=== PATIENT | female | born 1995 ===

== ENCOUNTER 2018-08-12 10:16 | Inpatient (IN) | payer OTHER ==
[2018-08-12] MEDS ORDERED: Alum-Mag Hydrox-Simethicone Susp (30 mL) PO STA (10:46)
[2018-08-12 11:23] LABS: BASO % 0.2 % (0.0-2.0); EOS # 0.4 K/uL (0.0-0.7); EOS % 2.7 % (0.0-4.0); HEMOGLOBIN 13.2 g/dL (12.0-16.0); LYMPH # 1.8 K/uL (1.0-4.3); LYMPH % 13.3 % (20.0-40.0); MEAN CELL VOLUME 81.2 fl (81.0-99.0); MEAN CORPUSCULAR HGB CONC 34.5 g/dL (33.0-37.0); MEAN PLATELET VOLUME 8.2 fl (7.2-11.7); MONO # 0.8 K/uL (0.0-0.8); MONO % 5.7 % (0.0-10.0); NEUT # 10.4 K/uL (1.8-7.0); NEUT % 78.1 % (50.0-75.0); RBC 4.71 Mil/uL (3.80-5.20); RED CELL DISTRIBUTION WIDTH 13.7 % (11.5-14.5); WHITE BLOOD COUNT 13.4 K/uL (4.8-10.8)
[2018-08-12] MEDS ORDERED: Morphine 4 MG/ML VIAL ONE (11:33)
--- NOTE | 2018-08-12 12:49 | ED PDOC ---
HPI: Abdomen Time Seen by Provider: 08/12/18 10:36 Chief Complaint (Nursing): Abdominal Pain Chief Complaint (Provider): Epigastric abdominal pain History Per: Patient History/Exam Limitations: no limitations Onset/Duration Of Symptoms: Days Outside of [place] travel?: No Location Of Pain/Discomfort: Epigastric Quality Of Discomfort: Sharp, Burning Associated Symptoms: Nausea. denies: Fever, Chills, Vomiting, Loss Of Appetite, Constipation, Urinary Symptoms Additional Complaint(s): 23 yo female presents for evaluation of epigastric pain since this morning. Pt denies fever/chills. Pt reports mild nausea. Denies similar in the past. Pt states that she took ibuprofen for pain but it did not help. Pt reports normal BM. PT seen in clinic and states test was negative there. Past Medical History Reviewed: Historical Data, Nursing Documentation, Vital Signs Vital Signs: Last Vital Signs Temp 97 F L 08/12/18 10:25 Pulse 55 L 08/12/18 10:25 Resp 20 08/12/18 10:25 BP 110/45 L 08/12/18 11:44 Pulse Ox 98 08/12/18 10:25 - Medical History PMH: No Chronic Diseases - Surgical History Surgical History: No Surg Hx - Family History Family History: States: No Known Family Hx - Living Arrangements Living Arrangements: With Family - Social History Current smoker - smoking cessation education provided: No - Immunization History Hx Tetanus Toxoid Vaccination: No Hx Influenza Vaccination: No Hx Pneumococcal Vaccination: No - Home Medications Home Medications: Ambulatory Orders Medication Instructions Recorded No Known Home Med 08/12/18 - Allergies Allergies/Adverse Reactions: Allergies Allergy/AdvReac Type Severity Reaction Status Date / Time No Known Allergies Allergy Verified 08/12/18 10:25 Review of Systems ROS Statement: Except As Marked, All Systems Reviewed And Found Negative Constitutional: Negative for: Fever, Chills, Sweats Cardiovascular: Negative for: Chest Pain, Palpitations Gastrointestinal: Positive for: Nausea, Abdominal Pain. Negative for: Vomiting, Diarrhea Physical Exam - Reviewed Nursing Documentation Reviewed: Yes Vital Signs Reviewed: Yes - Physical Exam Appears: Positive for: Well, Non-toxic, No Acute Distress Head Exam: Positive for: ATRAUMATIC, NORMAL INSPECTION, NORMOCEPHALIC Skin: Positive for: Normal Color, Warm, DRY Eye Exam: Positive for: Normal appearance ENT: Positive for: Normal ENT Inspection Neck: Positive for: Normal, Painless ROM Cardiovascular/Chest: Positive for: Regular Rate, Rhythm Respiratory: Positive for: Normal Breath Sounds. Negative for: Accessory Muscle Use, Respiratory Distress Gastrointestinal/Abdominal: Positive for: Normal Exam, Soft, Tenderness (Epigastric ). Negative for: Guarding, Rebound Back: Positive for: Normal Inspection Extremity: Positive for: Normal ROM Neurologic/Psych: Positive for: Alert, Oriented - Laboratory Results Result Diagrams: 08/12/18 11:05 08/12/18 15:15 - ECG O2 Sat by Pulse Oximetry: 98 Medical Decision Making Medical Decision Making: Pt reports feeling better on re-evaluation. Beta Hcg 14 - US cancelled. Elevated WBC. GB US - Dilated CBD. Discussed with residential mortgage manager, seen by Dr. Rosas at bedside and seen by Dr. Lao at bedside. Dr. aLo recommends MRCP. MRCP shows Acute cholecystitis with stone in CBD. Discussed with Dr. Rosas. Pt with beta Hcg of 14. Discussed with Dr. Monge. States this is a chemical at this time and there is no WEB DEVELOPMENT INSTRUCTOR intervention at this time. Staes he can consult patient when GI/Surgery decided was is medically necessary for the patient and conservative management in preferred. Disposition - Clinical Impression Clinical Impression: Acute cholecystitis, Cholelithiasis, - Patient ED Disposition Is Patient to be Admitted: Yes - Disposition Disposition Time: 20:02 Condition: STABLE Forms: [facility] (Khmer) - Pt Status Changed To: Hospital Disposition Of: Inpatient - Admit Certification Admit to Inpatient:: After my assessment, the patient will require hos pitalization for at least two midnights. This is because of the severity of symptoms shown, intensity of services needed, and/or the medical risk in this patient being treated as an outpatient. - POA Present On Arrival: None
--- NOTE | 2018-08-12 13:44 | US ---
Date of service: 08/12/2018 HISTORY: epigastric pain COMPARISON: None. TECHNIQUE: Sonographic evaluation of the right upper quadrant of the abdomen. FINDINGS: LIVER: Measures 13.2 cm in length. Normal echogenicity of the liver parenchyma. No mass. No intrahepatic bile duct dilatation. GALLBLADDER: Cholelithiasis without gallbladder wall thickening/edema or pericholecystic fluid. Small gallstone at the gallbladder neck/cystic duct junction. Sonographic Rios's sign was not elicited. COMMON BILE DUCT: Measures 9 mm. No stones. Dilated. PANCREAS: Unremarkable as visualized. No mass. No ductal dilatation. RIGHT KIDNEY: Measures 10.5 x 5.0 x 5.5 cm in length. Normal echogenicity. No calculus, mass, or hydronephrosis. AORTA: No aneurysmal dilatation. IVC: Unremarkable. OTHER FINDINGS: None . IMPRESSION: Cholelithiasis without sonographic evidence of acute cholecystitis. Small gallstone at the gallbladder neck/cystic duct junction. Dilated CBD measuring up to 9 mm for which distal choledocholithiasis cannot be excluded. MRCP/ERCP can be obtained for further evaluation as clinically warranted.
[2018-08-12 15:36] LABS: ALBUMIN 3.9 g/dL (3.5-5.0); ALT/SGPT 125 U/L (9-52); AST/SGOT 233 U/L (14-36); BLOOD UREA NITROGEN 8 mg/dl (7-17); CALCIUM 9.2 mg/dL (8.4-10.2); GFR NON-AFRICAN AMERICAN > 60; LIPASE 35 U/L (23-300)
--- NOTE | 2018-08-12 15:36 | CP.PCM.CON ---
<Piotr Zendejas - Last Filed: 08/12/18 19:16> History of Present Illness - History of Present Illness History of Present Illness: General Surgery Consult Note for Dr. Rosas Reason for consult: abdominal pain, choelithiasis, dilated CBD 23 F with no significant PMH presents to [facility] for complaint of abdominal pain. Patient was seen and evaluated in the ED. Family was present at bedside. Patient states that her pain began this morning. She reports to never having experienced this pain in the past. She also states that she had associated nausea/vomiting with NBNB emesis. Patient became worried and went to the clinic to get checked out. During the visit, a test was done and found to be negative. Patient came to ED because she was not feeling any better after visit. test was done in ED and found to be positive and quantiative B-HCG was ordered. ABUS was done which revealed cholelithiasis and dilated CBD. Patient rates pain as severe. She describes it as constant and sharp in the epigastrium. Eating/drinkning aggravates symptoms. Admits to chills. Denies fevers, chest pain, SOB, palpitations, diarrhea, constipation, urinary symptoms. PMH: Denies Meds: Denies ALL: NKDA PSH: Denies FH: non-contributory Social: Denies tobacco/EtOH/illicit drug use Review of Systems - Review of Systems All systems: reviewed and no additional remarkable complaints except (as per HPI) Past Patient History - Past Social History Smoking Status: Never Smoked - PSYCHIATRIC Hx Substance Use: No - ANESTHESIA Hx Anesthesia: Yes Hx Anesthesia Reactions: No Hx Malignant Hyperthermia: No Meds Allergies/Adverse Reactions: Allergies Allergy/AdvReac Type Severity Reaction Status Date / Time No Known Allergies Allergy Verified 08/12/18 10:25 - Medications Medications: Current Medications Lactated Ringer's (Lactated Ringer's) 1,000 mls @ 105 mls/hr IV .Q9H32M REBECCA Ampicillin Sodium/Sulbactam (Sodium 3 gm/ Sodium Chloride) 100 mls @ 100 mls/hr IVPB Q6 REBECCA; Protocol Physical Exam - Constitutional Appears: Non-toxic, No Acute Distress - Head Exam Head Exam: NORMOCEPHALIC - Eye Exam Eye Exam: EOMI, Normal appearance Pupil Exam: PERRL - ENT Exam ENT Exam: Mucous Membranes Moist - Respiratory Exam Respiratory Exam: NORMAL BREATHING PATTERN - Cardiovascular Exam Cardiovascular Exam: REGULAR RHYTHM - GI/Abdominal Exam GI & Abdominal Exam: Distended, Normal Bowel Sounds, Soft, Tenderness (epigas tric). absent: Firm, Guarding, Rebound, Rigid - Extremities Exam Extremities exam: Positive for: normal capillary refill, pedal pulses present. Negative for: calf tenderness - Back Exam Back exam: absent: CVA tenderness (L), CVA tenderness (R) - Neurological Exam Neurological exam: Alert, CN II-XII Intact, Oriented x3 - Psychiatric Exam Psychiatric exam: Normal Affect, Normal Mood - Skin Skin Exam: Dry, Intact, Normal Color, Warm Results - Vital Signs Recent Vital Signs: Last Vital Signs Temp 97 F L 08/12/18 10:25 Pulse 55 L 08/12/18 10:25 Resp 20 08/12/18 10:25 BP 110/45 L 08/12/18 11:44 Pulse Ox 98 08/12/18 12:53 - Labs Result Diagrams: 08/12/18 11:05 08/12/18 15:15 Labs: Laboratory Results - last 24 hr 08/12/18 08/12/18 08/12/18 11:05 11:05 12:30 WBC 13.4 H RBC 4.71 Hgb 13.2 Hct 38.2 MCV 81.2 MCH 28.0 MCHC 34.5 RDW 13.7 Plt Count 171 MPV 8.2 Neut % (Auto) 78.1 H Lymph % (Auto) 13.3 L [place] % (Auto) 5.7 Eos % (Auto) 2.7 Baso % (Auto) 0.2 Neut # (Auto) 10.4 H Lymph # (Auto) 1.8 [place] # (Auto) 0.8 Eos # (Auto) 0.4 Baso # (Auto) 0.0 Beta HCG, Quant 14.48 Blood Type A POSITIVE Blood Type Confirm Antibody Screen Negative BBK History Checked No verified bt 08/12/18 14:00 WBC RBC Hgb Hct MCV MCH MCHC RDW Plt Count MPV Neut % (Auto) Lymph % (Auto) [place] % (Auto) Eos % (Auto) Baso % (Auto) Neut # (Auto) Lymph # (Auto) [place] # (Auto) Eos # (Auto) Baso # (Auto) Beta HCG, Quant Blood Type Blood Type Confirm A POSITIVE Antibody Screen BBK History Checked Assessment & Plan - Assessment and Plan (Free Text) Assessment: 23 F with cholelithiasis and dilated CBD found to have positive test Plan: -NPO -IV fluids -IV abx -Analgesics/Anti-emetics PRN -GI consult, help appreciated -DETECTOR CAR OPERATOR consult, help appreciated -Further recommendations as per Dr. Ralph Zendejas PGY2 - Date & Time Date: 08/12/18 <Kaiden Rosas - Last Filed: 08/13/18 00:16> Meds - Medications Medications: Current Medications Lactated Ringer's (Lactated Ringer's) 1,000 mls @ 105 mls/hr IV .Q9H32M [facility] Last Admin: 08/12/18 17:50 Dose: 105 mls/hr Ampicillin Sodium/Sulbactam (Sodium 3 gm/ Sodium Chloride) 100 mls @ 100 mls/hr IVPB Q6 REBECCA; Protocol Last Admin: 08/12/18 22:26 Dose: 100 mls/hr Morphine Sulfate (Morphine) 2 mg IVP Q4 PRN PRN Reason: Pain, moderate (4-7) Results - Vital Signs Recent Vital Signs: Last Vital Signs Temp 97.8 F 08/12/18 23:52 Pulse 59 L 08/12/18 23:52 Resp 19 08/12/18 23:52 BP 113/70 08/12/18 23:52 Pulse Ox 98 08/12/18 23:52 - Labs Result Diagrams: 08/12/18 11:05 08/12/18 15:15 Labs: Laboratory Results - last 24 hr 08/12/18 08/12/18 08/12/18 11:05 11:05 12:30 WBC 13.4 H RBC 4.71 Hgb 13.2 Hct 38.2 MCV 81.2 MCH 28.0 MCHC 34.5 RDW 13.7 Plt Count 171 MPV 8.2 Neut % (Auto) 78.1 H Lymph % (Auto) 13.3 L [place] % (Auto) 5.7 Eos % (Auto) 2.7 Baso % (Auto) 0.2 Neut # (Auto) 10.4 H Lymph # (Auto) 1.8 [place] # (Auto) 0.8 Eos # (Auto) 0.4 Baso # (Auto) 0.0 Sodium Cancelled Potassium Cancelled Chloride Cancelled Carbon Dioxide Cancelled Anion Gap Cancelled BUN Cancelled Creatinine Est GFR ( Amer) Cancelled Est GFR (Non-Af Amer) Cancelled Random Glucose Cancelled Calcium Cancelled Total Bilirubin Cancelled AST Cancelled ALT Cancelled Alkaline Phosphatase Cancelled Total Protein Cancelled Albumin Cancelled Globulin Cancelled Albumin/Globulin Ratio Cancelled Lipase Cancelled Beta HCG, Quant 14.48 Blood Type A POSITIVE Blood Type Confirm Antibody Screen Negative BBK History Checked No verified bt 08/12/18 08/12/18 14:00 15:15 WBC RBC Hgb Hct MCV MCH MCHC RDW Plt Count MPV Neut % (Auto) Lymph % (Auto) [place] % (Auto) Eos % (Auto) Baso % (Auto) Neut # (Auto) Lymph # (Auto) [place] # (Auto) Eos # (Auto) Baso # (Auto) Sodium 139 Potassium 4.1 Chloride 103 Carbon Dioxide 31 H Anion Gap 9 L BUN 8 Creatinine 0.4 L Est GFR ( Amer) > 60 Est GFR (Non-Af Amer) > 60 Random Glucose 107 H Calcium 9.2 Total Bilirubin 1.4 H AST 233 H ALT 125 H Alkaline Phosphatase 135 H Total Protein 8.0 Albumin 3.9 Globulin 4.0 H Albumin/Globulin Ratio 1.0 Lipase 35 Beta HCG, Quant Blood Type Blood Type Confirm A POSITIVE Antibody Screen BBK History Checked Assessment & Plan - Assessment and Plan (Free Text) Plan: I personally saw and examined the patient with the resident staff and agree with the above assessment and plan. I personally reviewed the available diagnostic images and imaging reports. 23 female acute calculus cholecystitis and choledocholithiasis confirmed on MRCP. HD stable. Abd soft, mild upper abd tenderness. Elevated LFT's and Tbili 1.4. NPO. IVF. Abx. GI consult for ERCP, sphincterotomy and stone extraction. OB consult and patient counseling re: status of positive Upreg, confirmation of , viability, risks associated with appropriate treatment of her cholecystitis and CBD obstruction including ERCP and subsequent lap cholecystectomy.
--- NOTE | 2018-08-12 17:22 | MRI ---
Date of service: 08/12/2018 PROCEDURE: Magnetic Resonance Cholangiopancreatography HISTORY: Dilated CBD COMPARISON: None available. TECHNIQUE: Multiplanar, multisequence MR images of the abdomen were obtained, including heavily T2 weighted MRCP images of the biliary system. Rotating maximum intensity projection images of the biliary system were generated. FINDINGS: MRCP: Dilated CBD secondary to 7 x 3 mm calculus within the mid common duct. Small calculi within the cystic duct. No intrahepatic biliary ductal dilatation. LIVER: Unremarkable. GALLBLADDER: Distended gallbladder with cholelithiasis and wall thickening/edema as well as a small amount of pericholecystic fluid. SPLEEN: Unremarkable. PANCREAS: Unremarkable. ADRENALS: Unremarkable. KIDNEYS: Unremarkable. AORTA: No aneurysm. ASCITES: None. OTHER FINDINGS: None. IMPRESSION: Findings suggestive of acute cholecystitis with gallbladder distention, pericholecystic fluid and multiple small gallstones within the gallbladder neck and cystic duct. Choledocholithiasis with a 7 x 3 mm calculus in the mid common duct. Findings conveyed to JAVI Leal by Dr. Garcia at 5:20 p.m. on 08/12/2018.
[2018-08-12] MEDS: Lactated Ringer's 1,000 ML IV SCH (17:50)
[2018-08-13] MEDS: Lactated Ringer's 1,000 ML IV SCH ×5 (00:32→20:00)
[2018-08-13] MEDS ORDERED: Influenza Vaccine (5 YR UP)/PF 60 MCG/0.5 ML SYR IM ONE (06:00)
[2018-08-13 06:53] LABS: INR 1.2; PROTHROMBIN TIME 13.7 Seconds (9.8-13.1)
[2018-08-13 06:55] LABS: PARTIAL THROMBOPLASTIN TIME 36.4 Seconds (25.6-37.1)
--- NOTE | 2018-08-13 07:15 | CP.PCM.CON ---
History of Present Illness - History of Present Illness History of Present Illness: NOTE DATED FOR 08/12/18 DUE TO MEDITECH DIFFICULTIES; SEE DAILY PROGRESS NOTE FOR UPDATED ASSESSMENT AND PLAN PGY-4 GI Fellow Consult Note Pt is a 23 yo Hisp Female w/o medical history presenting with abdominal pain. She states in the AM of 08/12 she had abrupt onset, sharp, non-radiating epigastric pain associated with N/V. Emesis consisted of PO intake, denying any bloody or bilious emesis. Cannot identify and precipitating or alleviating factors. She denied any fever, chill, CP, nor SOB. Of note, UPT was reportedly positive in ED and BCG 14. 12 point ROS negative other than stated above MHx: None SurgHx: None Meds: None FamHx: Sister with gastritis SocHx: Rare EtOH, denied tob/drugs All: NKDA Past Patient History - Past Medical History & Family History Past Medical History?: No - Past Social History Smoking Status: Never Smoked - MUSCULOSKELETAL/RHEUMATOLOGICAL Hx Falls: No - PSYCHIATRIC Hx Substance Use: No - ANESTHESIA Hx Anesthesia: Yes Hx Anesthesia Reactions: No Hx Malignant Hyperthermia: No Meds Allergies/Adverse Reactions: Allergies Allergy/AdvReac Type Severity Reaction Status Date / Time No Known Allergies Allergy Verified 08/12/18 10:25 - Medications Medications: Current Medications Lactated Ringer's (Lactated Ringer's) 1,000 mls @ 105 mls/hr IV .Q9H32M [facility] Last Admin: 08/13/18 06:12 Dose: 105 mls/hr Ampicillin Sodium/Sulbactam (Sodium 3 gm/ Sodium Chloride) 100 mls @ 100 mls/hr IVPB Q6 REBECCA; Protocol Last Admin: 08/13/18 03:41 Dose: 100 mls/hr Morphine Sulfate (Morphine) 2 mg IVP Q4 PRN PRN Reason: Pain, moderate (4-7) Physical Exam - Constitutional Appears: Well, Non-toxic, No Acute Distress - Head Exam Head Exam: ATRAUMATIC, NORMAL INSPECTION - Eye Exam Eye Exam: EOMI. absent: Conjunctival injection, Scleral icterus - ENT Exam ENT Exam: Mucous Membranes Moist. absent: Mucous Membranes Dry, Normal External Ear Exam - Respiratory Exam Respiratory Exam: Clear to Auscultation Bilateral, NORMAL BREATHING PATTERN - Cardiovascular Exam Cardiovascular Exam: REGULAR RHYTHM, RRR - GI/Abdominal Exam GI & Abdominal Exam: Normal Bowel Sounds, Soft, Tenderness (mild in epigastric w/o guarding). absent: Bruit, Diminished Bowel Sounds, Distended, Firm, Guarding, Hernia, Mass, Organomegaly, Pulsatile Mass, Rebound, Rigid - Rectal Exam Rectal Exam: Deferred - Extremities Exam Extremities exam: Positive for: normal inspection. Negative for: pedal edema - Neurological Exam Neurological exam: Alert, CN II-XII Intact - Psychiatric Exam Psychiatric exam: Normal Affect, Normal Mood - Skin Skin Exam: Normal Color, Warm Results - Vital Signs Recent Vital Signs: Last Vital Signs Temp 97.8 F 08/12/18 23:52 Pulse 59 L 08/12/18 23:52 Resp 19 08/12/18 23:52 BP 113/70 08/12/18 23:52 Pulse Ox 98 08/12/18 23:52 - Labs Result Diagrams: 08/12/18 11:05 08/12/18 15:15 Labs: Laboratory Results - last 24 hr 08/12/18 08/12/18 08/12/18 11:05 11:05 12:30 WBC 13.4 H RBC 4.71 Hgb 13.2 Hct 38.2 MCV 81.2 MCH 28.0 MCHC 34.5 RDW 13.7 Plt Count 171 MPV 8.2 Neut % (Auto) 78.1 H Lymph % (Auto) 13.3 L [place] % (Auto) 5.7 Eos % (Auto) 2.7 Baso % (Auto) 0.2 Neut # (Auto) 10.4 H Lymph # (Auto) 1.8 [place] # (Auto) 0.8 Eos # (Auto) 0.4 Baso # (Auto) 0.0 PT INR APTT Sodium Cancelled Potassium Cancelled Chloride Cancelled Carbon Dioxide Cancelled Anion Gap Cancelled BUN Cancelled Creatinine Est GFR ( Amer) Cancelled Est GFR (Non-Af Amer) Cancelled Random Glucose Cancelled Calcium Cancelled Total Bilirubin Cancelled AST Cancelled ALT Cancelled Alkaline Phosphatase Cancelled Total Protein Cancelled Albumin Cancelled Globulin Cancelled Albumin/Globulin Ratio Cancelled Lipase Cancelled Beta HCG, Quant 14.48 Blood Type A POSITIVE Blood Type Confirm Antibody Screen Negative BBK History Checked No verified bt 08/12/18 08/12/18 08/13/18 14:00 15:15 05:55 WBC RBC Hgb Hct MCV MCH MCHC RDW Plt Count MPV Neut % (Auto) Lymph % (Auto) [place] % (Auto) Eos % (Auto) Baso % (Auto) Neut # (Auto) Lymph # (Auto) [place] # (Auto) Eos # (Auto) Baso # (Auto) PT 13.7 H INR 1.2 APTT 36.4 Sodium 139 Potassium 4.1 Chloride 103 Carbon Dioxide 31 H Anion Gap 9 L BUN 8 Creatinine 0.4 L Est GFR ( Amer) > 60 Est GFR (Non-Af Amer) > 60 Random Glucose 107 H Calcium 9.2 Total Bilirubin 1.4 H AST 233 H ALT 125 H Alkaline Phosphatase 135 H Total Protein 8.0 Albumin 3.9 Globulin 4.0 H Albumin/Globulin Ratio 1.0 Lipase 35 Beta HCG, Quant Blood Type Blood Type Confirm A POSITIVE Antibody Screen BBK History Checked Assessment & Plan - Assessment and Plan (Free Text) Assessment: 23 yo Hisp Female possible recently diagnosed presenting with abd pain. # Abd Pain: Due to Choledocholithiasis. Dilated CBD to 9 mm on US with MRCP finding 3x7mm mid CBD stone. Though WBC mildly elevated, could be stress response. Reassuringly, no fever and abd pain much improved. Complicated sit uation given suspected pregancy. Risk to fetus at this point outweigh benefits as no signs of cholangitis and abd pain much improved at this time. Therefore, plan would be to monitor closely with supportive care for passing of stone. Plan: - Monitor for sign of cholangitis (Fever, CBC, CMP) - IVF - Should pt develop cholangitis, will need detailed risk/benefit discussion given suspected due to risk of radiation exposure to fetus - OB consult - Supportive care Thank you for the consult. Will cont to follow. Please call/page if questions. Pt seen and examined with Dr. Lao. See attestation for further recs/changes.
[2018-08-13 08:35] LABS: HEMOGLOBIN 12.1 g/dL (12.0-16.0); MEAN CELL VOLUME 80.5 fl (81.0-99.0); MEAN CORPUSCULAR HEMOGLOBIN 28.3 pg (27.0-31.0); MEAN CORPUSCULAR HGB CONC 35.1 g/dL (33.0-37.0); RBC 4.28 Mil/uL (3.80-5.20); RED CELL DISTRIBUTION WIDTH 13.9 % (11.5-14.5); WHITE BLOOD COUNT 8.7 K/uL (4.8-10.8)
[2018-08-13 09:03] LABS: ALB/GLOB RATIO 0.9 (1.0-2.1); ALBUMIN 3.3 g/dL (3.5-5.0); ALT/SGPT 98 U/L (9-52); AST/SGOT 109 U/L (14-36); BLOOD UREA NITROGEN 8 mg/dl (7-17); CALCIUM 8.4 mg/dL (8.4-10.2); GFR NON-AFRICAN AMERICAN > 60
--- NOTE | 2018-08-13 09:21 | CP.PCM.PN ---
Subjective - Date & Time of Evaluation Date of Evaluation: 08/13/18 Time of Evaluation: 08:30 - Subjective Subjective: PGY-4 GI Fellow Prog Note Pt lying in bed, using phone when seen this AM. States no abd pain overnight and asking to eat. Denied fevers, chills, n/v. 5 point ROS negative other than stated above. Objective - Vital Signs/Intake and Output Vital Signs (last 24 hours): Temp Pulse Resp BP Pulse Ox 98 F 74 20 95/57 L 99 08/13/18 08:50 08/13/18 08:50 08/13/18 08:50 08/13/18 08:50 08/13/18 08:50 Intake and Output: 08/13/18 08/13/18 06:59 18:59 Intake Total 100 Balance 100 - Medications Medications: Current Medications Lactated Ringer's (Lactated Ringer's) 1,000 mls @ 105 mls/hr IV .Q9H32M [facility] Last Admin: 08/13/18 06:12 Dose: 105 mls/hr Ampicillin Sodium/Sulbactam (Sodium 3 gm/ Sodium Chloride) 100 mls @ 100 mls/hr IVPB Q6 REBECCA; Protocol Last Admin: 08/13/18 03:41 Dose: 100 mls/hr Morphine Sulfate (Morphine) 2 mg IVP Q4 PRN PRN Reason: Pain, moderate (4-7) - Labs Labs: 08/13/18 08:29 08/13/18 08:29 PT 13.7 Seconds (9.8-13.1) H 08/13/18 05:55 INR 1.2 08/13/18 05:55 APTT 36.4 Seconds (25.6-37.1) 08/13/18 05:55 - Constitutional Appears: Well, Non-toxic, No Acute Distress - Head Exam Head Exam: ATRAUMATIC, NORMAL INSPECTION - Eye Exam Eye Exam: EOMI. absent: Conjunctival injection, Scleral icterus - ENT Exam ENT Exam: Mucous Membranes Dry, Normal External Ear Exam. absent: Mucous Membranes Moist - GI/Abdominal Exam GI & Abdominal Exam: Soft, Normal Bowel Sounds. absent: Bruit, Distended, Firm, Guarding, Rigid, Tenderness, Hernia, Mass, Pulsatile Mass, Rebound - Psychiatric Exam Psychiatric exam: Normal Affect, Normal Mood Assessment and Plan - Assessment and Plan (Free Text) Assessment: 23 yo Hisp Female possible recently diagnosed presenting with abd pain. # Abd Pain: Improved. Likely due to Choledocholithiasis. Dilated CBD to 9 mm on US with MRCP finding 3x7mm mid CBD stone. WBC initially elevated but resolved. Reassuringly, no fever and abd pain much improved. Complicated situation given suspected pregancy. Discussed risks to fetus (radiation, anesthesia, etc.) at this point outweigh benefits as no signs of cholangitis and abd pain much improved at this time. Patient and significant other expressed understanding about risks and benefits of doing and not doing ERCP. All agree to monitor and defer ERCP at this time. Plan: - Cont to monitor labs - IVF - OB consult - Supportive care - No plans for ERCP at this time; discussed in detail with patient (see above) Thank you for the consult. Will cont to follow. Please call/page if questions. Pt seen and examined with Dr. Lao. See attestation for further recs/changes.
[2018-08-13 11:47] LABS: HEPATITIS B SURFACE AG Negative (NEGATIVE)
[2018-08-13 11:52] LABS: HEPATITIS A IGM NEGATIVE (NEGATIVE); HEPATITIS B CORE AB NEGATIVE (NEGATIVE)
[2018-08-13 12:05] LABS: HEPATITIS C ANTIBODY NEGATIVE (NEGATIVE)
--- NOTE | 2018-08-13 13:36 | CP.PCM.PN ---
<Piotr Zendejas - Last Filed: 08/13/18 13:36> Subjective - Date & Time of Evaluation Date of Evaluation: 08/13/18 Time of Evaluation: 13:36 - Subjective Subjective: General Surgery Note for Dr. Rosas Patient seen and examined at bedside. No acute event overnight. Patient denies abdominal pain currently. She also denies any fever/chills or nausea/vomiting. Patient is NPO still but asking for something to drink. No other complaints at this time. Objective - Vital Signs/Intake and Output Vital Signs (last 24 hours): Temp Pulse Resp BP Pulse Ox 98 F 74 20 95/57 L 99 08/13/18 08:50 08/13/18 08:50 08/13/18 08:50 08/13/18 08:50 08/13/18 08:50 Intake and Output: 08/13/18 08/13/18 06:59 18:59 Intake Total 100 Balance 100 - Medications Medications: Current Medications Lactated Ringer's (Lactated Ringer's) 1,000 mls @ 105 mls/hr IV .[id number] [facility] Last Admin: 08/13/18 10:22 Dose: Not Given Ampicillin Sodium/Sulbactam (Sodium 3 gm/ Sodium Chloride) 100 mls @ 100 mls/hr IVPB Q6 REBECCA; Protocol Last Admin: 08/13/18 09:58 Dose: 100 mls/hr Morphine Sulfate (Morphine) 2 mg IVP Q4 PRN PRN Reason: Pain, moderate (4-7) - Labs Labs: 08/13/18 08:29 08/13/18 08:29 PT 13.7 Seconds (9.8-13.1) H 08/13/18 05:55 INR 1.2 08/13/18 05:55 APTT 36.4 Seconds (25.6-37.1) 08/13/18 05:55 - Constitutional Appears: No Acute Distress - Head Exam Head Exam: ATRAUMATIC - Eye Exam Eye Exam: EOMI, Normal appearance Pupil Exam: PERRL - ENT Exam ENT Exam: Mucous Membranes Moist - Respiratory Exam Respiratory Exam: NORMAL BREATHING PATTERN - Cardiovascular Exam Cardiovascular Exam: REGULAR RHYTHM - GI/Abdominal Exam GI & Abdominal Exam: Soft, Normal Bowel Sounds. 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 Ralph Zendejas PGY2 <Kaiden Rosas - Last Filed: 08/14/18 17:41> Objective - Vital Signs/Intake and Output Vital Signs (last 24 hours): Temp Pulse Resp BP Pulse Ox 98.0 F 68 19 110/61 99 08/14/18 07:42 08/14/18 07:42 08/14/18 07:42 08/14/18 07:42 08/14/18 07:42 - Labs Labs: 08/14/18 05:30 08/14/18 05:30 PT 13.7 Seconds (9.8-13.1) H 08/13/18 05:55 INR 1.2 08/13/18 05:55 APTT 36.4 Seconds (25.6-37.1) 08/13/18 05:55 Assessment and Plan - Assessment and Plan (Free Text) Plan: Seen and examined. Pain resolved. Hungry. Labs downtrending. Cont. as above. Repeat bHCG in am per OB recs. Will discuss options for her symptomatic cholelithiasis following repeat labs and overall clinical progression, observation and elective cholecystectomy vs. cholecystectomy this admission.
[2018-08-14 06:27] LABS: HEMOGLOBIN 11.4 g/dL (12.0-16.0); MEAN CELL VOLUME 80.8 fl (81.0-99.0); MEAN CORPUSCULAR HEMOGLOBIN 27.9 pg (27.0-31.0); MEAN CORPUSCULAR HGB CONC 34.6 g/dL (33.0-37.0); RBC 4.08 Mil/uL (3.80-5.20); RED CELL DISTRIBUTION WIDTH 13.8 % (11.5-14.5); WHITE BLOOD COUNT 9.3 K/uL (4.8-10.8)
[2018-08-14 06:54] LABS: ALB/GLOB RATIO 0.9 (1.0-2.1); ALBUMIN 3.2 g/dL (3.5-5.0); ALT/SGPT 83 U/L (9-52); AST/SGOT 77 U/L (14-36); BLOOD UREA NITROGEN 6 mg/dl (7-17); CALCIUM 8.3 mg/dL (8.4-10.2); GFR NON-AFRICAN AMERICAN > 60
[2018-08-14 07:42] VITALS: BP 110/61; PULSE 68; RESP 19; TEMP 98; O2SAT 99
[2018-08-14] MEDS ORDERED: Potassium Chloride 20 mEq ER Tab PO ONE (09:06)
--- NOTE | 2018-08-14 13:01 | CP.PCM.DIS ---
<Flores Galarza - Last Filed: 08/14/18 13:19> Provider - Provider Date of Admission: 08/12/18 19:32 Attending physician: Kaiden Rosas MD Consults: GI: Dr. Lao OB-ENTRY LEVEL FINANCIAL ANALYST: Dr. Monge Time Spent in preparation of Discharge (in minutes): 30 Hospital Course - Lab Results Lab Results: Most Recent Lab Values WBC 9.3 K/uL (4.8-10.8) 08/14/18 05:30 RBC 4.08 Mil/uL (3.80-5.20) 08/14/18 05:30 Hgb 11.4 g/dL (12.0-16.0) L 08/14/18 05:30 Hct 32.9 % (34.0-47.0) L 08/14/18 05:30 MCV 80.8 fl (81.0-99.0) L 08/14/18 05:30 MCH 27.9 pg (27.0-31.0) 08/14/18 05:30 MCHC 34.6 g/dL (33.0-37.0) 08/14/18 05:30 RDW 13.8 % (11.5-14.5) 08/14/18 05:30 Plt Count 123 K/uL (130-400) L D 08/14/18 05:30 MPV 8.2 fl (7.2-11.7) 08/12/18 11:05 Neut % (Auto) 78.1 % (50.0-75.0) H 08/12/18 11:05 Lymph % (Auto) 13.3 % (20.0-40.0) L 08/12/18 11:05 Cascade % (Auto) 5.7 % (0.0-10.0) 08/12/18 11:05 Eos % (Auto) 2.7 % (0.0-4.0) 08/12/18 11:05 Baso % (Auto) 0.2 % (0.0-2.0) 08/12/18 11:05 Neut # (Auto) 10.4 K/uL (1.8-7.0) H 08/12/18 11:05 Lymph # (Auto) 1.8 K/uL (1.0-4.3) 08/12/18 11:05 Cascade # (Auto) 0.8 K/uL (0.0-0.8) 08/12/18 11:05 Eos # (Auto) 0.4 K/uL (0.0-0.7) 08/12/18 11:05 Baso # (Auto) 0.0 K/uL (0.0-0.2) 08/12/18 11:05 PT 13.7 Seconds (9.8-13.1) H 08/13/18 05:55 INR 1.2 08/13/18 05:55 APTT 36.4 Seconds (25.6-37.1) 08/13/18 05:55 Sodium 138 mmol/l (132-148) 08/14/18 05:30 Potassium 3.5 MMOL/L (3.6-5.0) L 08/14/18 05:30 Chloride 105 mmol/L (98-107) 08/14/18 05:30 Carbon Dioxide 26 mmol/L (22-30) 08/14/18 05:30 Anion Gap 11 (10-20) 08/14/18 05:30 BUN 6 mg/dl (7-17) L 08/14/18 05:30 Creatinine 0.4 mg/dl (0.7-1.2) L 08/14/18 05:30 Est GFR ( Amer) > 60 08/14/18 05:30 Est GFR (Non-Af Amer) > 60 08/14/18 05:30 Random Glucose 61 mg/dL (65-105) L 08/14/18 05:30 Calcium 8.3 mg/dL (8.4-10.2) L 08/14/18 05:30 Total Bilirubin 1.1 mg/dl (0.2-1.3) 08/14/18 05:30 AST 77 U/L (14-36) H D 08/14/18 05:30 ALT 83 U/L (9-52) H 08/14/18 05:30 Alkaline Phosphatase 116 U/L (38-126) 08/14/18 05:30 Total Protein 6.6 G/DL (6.3-8.2) 08/14/18 05:30 Albumin 3.2 g/dL (3.5-5.0) L 08/14/18 05:30 Globulin 3.4 gm/dL (2.2-3.9) 08/14/18 05:30 Albumin/Globulin Ratio 0.9 (1.0-2.1) L 08/14/18 05:30 Lipase 35 U/L (23-300) 08/12/18 15:15 Beta HCG, Quant 9.67 mIU/mL 08/14/18 05:30 Hepatitis A IgM Ab Negative (NEGATIVE) 08/13/18 05:55 Hep Bs Antigen Negative (NEGATIVE) 08/13/18 05:55 Hep B Core IgM Ab Negative (NEGATIVE) 08/13/18 05:55 Hepatitis C Antibody Negative (NEGATIVE) 08/13/18 05:55 Blood Type A POSITIVE 08/12/18 12:30 Blood Type Confirm A POSITIVE 08/12/18 14:00 Antibody Screen Negative 08/12/18 12:30 BBK History Checked No verified bt 08/12/18 12:30 - Hospital Course Hospital Course: 23yo F with no significant PMH presented to [facility] ED for complaints of abdominal pain that began that morning. She never had these sx in the past. She had associated nausea/vomiting. Patient became worried and went to the clinic to get checked out. During the visit, a test was done and found to be negative. Patient came to ED because she was not feeling any better after visit. test was done in ED and found to be positive and quantiative B-HCG was 14.48. Repeat B-HCG was done 2 days later which decreased to 9.67. OB was consulted. They recommended FU outpatient with serial blood work to determine if pt is as it is uncertain given that the B-HCG number decreased. US showed cholelithiasis without sonographic evidence of acute cholecystitis. CBD was dilated to 9mm. MRCP was done which showed gallbladder distention, pericholecystic fluid, multiple small gallstones and choledocholithiasis with one stone in mid common duct. GI was consulted for Choledocholithiasis. Per GI, risk to fetus from ERCP outweighs benefits as there were no signs of cholangitis and abd pain had resolved. Pt's abdominal pain and tenderness have resolved, she is tolerating low fat diet. WBC and T bili normalized and LFTs are trending down compatible with a passed stone. Patient is discharged home on a low fat diet. Pt instructed to return to ED if abdominal pain returns. She is to follow up with her PMD for serial B-HCG to determine if . Discharge Exam - Head Exam Head Exam: ATRAUMATIC, NORMAL INSPECTION - Respiratory Exam Respiratory Exam: NORMAL BREATHING PATTERN. absent: Respiratory Distress - Cardiovascular Exam Cardiovascular Exam: +S1, +S2 - GI/Abdominal Exam GI & Abdominal Exam: Soft. absent: Distended, Firm, Guarding, Rebound, Rigid, Tenderness - Neurological Exam Neurological exam: Alert, CN II-XII Intact, Oriented x3 - Psychiatric Exam Psychiatric exam: Normal Affect, Normal Mood - Skin Skin Exam: Dry, Normal Color, Warm Discharge Plan - Follow Up Plan Condition: STABLE Disposition: HOME/ ROUTINE Patient education suggested?: Yes Instructions: Gallstones (DC) Additional Instructions: Follow up with PMD or in clinic for serial B-HCG measurements to determine if . Continue low fat diet to prevent further attacks. If abdominal pain returns or you experience fever or vomiting, return to ED. Given prescription for Antibiotics: Cipro & Flagyl. Take full course of antibiotics. Referrals: Kaiden Rosas MD [Staff Provider] - <Kaiden Rosas - Last Filed: 08/14/18 17:35> Provider - Provider Date of Admission: 08/12/18 19:32 Attending physician: Kaiden Rosas MD Hospital Course - Lab Results Lab Results: Most Recent Lab Values WBC 9.3 K/uL (4.8-10.8) 08/14/18 05:30 RBC 4.08 Mil/uL (3.80-5.20) 08/14/18 05:30 Hgb 11.4 g/dL (12.0-16.0) L 08/14/18 05:30 Hct 32.9 % (34.0-47.0) L 08/14/18 05:30 MCV 80.8 fl (81.0-99.0) L 08/14/18 05:30 MCH 27.9 pg (27.0-31.0) 08/14/18 05:30 MCHC 34.6 g/dL (33.0-37.0) 08/14/18 05:30 RDW 13.8 % (11.5-14.5) 08/14/18 05:30 Plt Count 123 K/uL (130-400) L D 08/14/18 05:30 MPV 8.2 fl (7.2-11.7) 08/12/18 11:05 Neut % (Auto) 78.1 % (50.0-75.0) H 08/12/18 11:05 Lymph % (Auto) 13.3 % (20.0-40.0) L 08/12/18 11:05 Cascade % (Auto) 5.7 % (0.0-10.0) 08/12/18 11:05 Eos % (Auto) 2.7 % (0.0-4.0) 08/12/18 11:05 Baso % (Auto) 0.2 % (0.0-2.0) 08/12/18 11:05 Neut # (Auto) 10.4 K/uL (1.8-7.0) H 08/12/18 11:05 Lymph # (Auto) 1.8 K/uL (1.0-4.3) 08/12/18 11:05 Cascade # (Auto) 0.8 K/uL (0.0-0.8) 08/12/18 11:05 Eos # (Auto) 0.4 K/uL (0.0-0.7) 08/12/18 11:05 Baso # (Auto) 0.0 K/uL (0.0-0.2) 08/12/18 11:05 PT 13.7 Seconds (9.8-13.1) H 08/13/18 05:55 INR 1.2 08/13/18 05:55 APTT 36.4 Seconds (25.6-37.1) 08/13/18 05:55 Sodium 138 mmol/l (132-148) 08/14/18 05:30 Potassium 3.5 MMOL/L (3.6-5.0) L 08/14/18 05:30 Chloride 105 mmol/L (98-107) 08/14/18 05:30 Carbon Dioxide 26 mmol/L (22-30) 08/14/18 05:30 Anion Gap 11 (10-20) 08/14/18 05:30 BUN 6 mg/dl (7-17) L 08/14/18 05:30 Creatinine 0.4 mg/dl (0.7-1.2) L 08/14/18 05:30 Est GFR ( Amer) > 60 08/14/18 05:30 Est GFR (Non-Af Amer) > 60 08/14/18 05:30 Random Glucose 61 mg/dL (65-105) L 08/14/18 05:30 Calcium 8.3 mg/dL (8.4-10.2) L 08/14/18 05:30 Total Bilirubin 1.1 mg/dl (0.2-1.3) 08/14/18 05:30 AST 77 U/L (14-36) H D 08/14/18 05:30 ALT 83 U/L (9-52) H 08/14/18 05:30 Alkaline Phosphatase 116 U/L (38-126) 08/14/18 05:30 Total Protein 6.6 G/DL (6.3-8.2) 08/14/18 05:30 Albumin 3.2 g/dL (3.5-5.0) L 08/14/18 05:30 Globulin 3.4 gm/dL (2.2-3.9) 08/14/18 05:30 Albumin/Globulin Ratio 0.9 (1.0-2.1) L 08/14/18 05:30 Lipase 35 U/L (23-300) 08/12/18 15:15 Beta HCG, Quant 9.67 mIU/mL 08/14/18 05:30 Hepatitis A IgM Ab Negative (NEGATIVE) 08/13/18 05:55 Hep Bs Antigen Negative (NEGATIVE) 08/13/18 05:55 Hep B Core IgM Ab Negative (NEGATIVE) 08/13/18 05:55 Hepatitis C Antibody Negative (NEGATIVE) 08/13/18 05:55 Blood Type A POSITIVE 08/12/18 12:30 Blood Type Confirm A POSITIVE 08/12/18 14:00 Antibody Screen Negative 08/12/18 12:30 BBK History Checked No verified bt 08/12/18 12:30
== END 2018-08-14 15:38 | disposition home or self-care (01) | DRG 208 ==
LOC: H.ER 10:16 → H.ERHOLD 19:32 → H.MEDSURG1 21:16
PROVIDERS: ADMIT Surgery; ATTEND Surgery
DX: K80.62 Calculus of gallbladder and bile duct with acute cholecystitis without obstruction (principal)

== ENCOUNTER 2018-09-20 14:59 | Emergency (ER) | payer OTHER ==
[2018-09-20 14:59] VITALS: BMI 25.1
[2018-09-20 15:46] VITALS: RESP 16
[2018-09-20] MEDS ORDERED: Sodium Chloride 0.9% 1,000 ML IV STA (16:05)
--- NOTE | 2018-09-20 16:39 | ED PDOC ---
HPI: Abdomen Time Seen by Provider: 09/20/18 15:53 Chief Complaint (Nursing): Fever Chief Complaint (Provider): Abdominal Pain History Per: Patient History/Exam Limitations: no limitations Onset/Duration Of Symptoms: Hrs (Earlier today) Current Symptoms Are (Timing): Still Present Location Of Pain/Discomfort: RUQ Associated Symptoms: Fever. denies: Nausea Additional Complaint(s): 23 year old female presents to the ED complaining of abdominal pain. Patient reports she has RUQ pain which started gradually today around noon and is associated with a subjective fever. She states she took Tylenol 2 hours ago. Denies nausea, vomiting, change in appetite, radiation of pain, URI symptoms, urinary symptoms, or known sick contacts. Patient reports she had a cholecystectomy 10 days ago at [facility] but doesn't remember name of the surgeon. Patient has not followed up yet but has a follow up appointment on Thursday. PMD: none Past Medical History Reviewed: Historical Data, Nursing Documentation, Vital Signs Vital Signs: Last Vital Signs Temp 99.0 F 09/20/18 15:44 Pulse 88 09/20/18 15:44 Resp 16 09/20/18 15:44 BP 100/69 09/20/18 15:44 Pulse Ox 99 09/20/18 15:44 - Medical History PMH: No Chronic Diseases - Surgical History Surgical History: Cholecystectomy - Family History Family History: States: No Known Family Hx - Social History Current smoker - smoking cessation education provided: No Alcohol: None - Immunization History Hx Tetanus Toxoid Vaccination: No Hx Influenza Vaccination: No Hx Pneumococcal Vaccination: No - Home Medications Home Medications: Ambulatory Orders Medication Instructions Recorded Ciprofloxacin [Cipro] 1 tab PO BID #20 tab 09/20/18 metroNIDAZOLE [Flagyl] 500 mg PO TID #30 tab 09/20/18 - Allergies Allergies/Adverse Reactions: Allergies Allergy/AdvReac Type Severity Reaction Status Date / Time No Known Allergies Allergy Verified 09/20/18 15:44 Review of Systems ROS Statement: Except As Marked, All Systems Reviewed And Found Negative (as per HPI) Constitutional: Positive for: Fever Respiratory: Negative for: Other (URI symptoms) Gastrointestinal: Positive for: Abdominal Pain. Negative for: Nausea, Vomiting Genitourinary Female: Negative for: Dysuria, Hematuria Physical Exam - Reviewed Nursing Documentation Reviewed: Yes Vital Signs Reviewed: Yes - Physical Exam Appears: Positive for: Non-toxic, No Acute Distress Head Exam: Positive for: ATRAUMATIC, NORMOCEPHALIC Skin: Positive for: Warm, Dry Eye Exam: Positive for: EOMI, PERRL ENT: Negative for: Pharyngeal Erythema, Tonsillar Exudate Neck: Positive for: Painless ROM, Supple Cardiovascular/Chest: Positive for: Regular Rate, Rhythm. Negative for: Murmur Respiratory: Positive for: Normal Breath Sounds. Negative for: Respiratory Distress Gastrointestinal/Abdominal: Positive for: Soft, Tenderness (RUQ tenderness to palpation), Other (Well healed laparoscopic scars in RUQ, umbilicus, and epigastric area; clean dry and intact; no erythema). Negative for: Mass, Guarding, Rebound Back: Positive for: Normal Inspection. Negative for: Decreased ROM Extremity: Positive for: Normal ROM. Negative for: Deformity Lymphatic: Negative for: Adenopathy Neurologic/Psych: Positive for: Alert. Negative for: Motor/Sensory Deficits - Laboratory Results Result Diagrams: 09/20/18 16:34 09/20/18 16:34 - ECG O2 Sat by Pulse Oximetry: 99 (RA) Pulse Ox Interpretation: Normal Medical Decision Making Medical Decision Making: Initial Impression: Febrile illness and abdominal pain s/p cholecystectomy Differential includes but not limited to viral illness, pneumonia, pyelonephritis, and abdominal abscess Initial Plan: --CT abd/pelvis --CMP --Lact acid stat --Lipase stat --ED urine dipstick --ED urine --CBC --Chest X-ray --Sodium chloride 1000mL IV --Blood culture --Urine culture Accession No. : [id number] Patient Name / ID : KIAH JARAMILLO / [id number] Exam Date : 09/20/2018 17:47:18 ( Approved ) Study Comment : Sex / Age : F / 23Y Creator : Calvin Granado MD Dictator : Calvin Granado MD Cnc Lathe Machinist : Computer Technician : Calvin Granado MD Approver2 : Report Date : 09/20/2018 18:31:34 My Comment : Date of service: 09/20/2018 PROCEDURE: CT Abdomen and Pelvis with contrast HISTORY: fever post op cholecystectomy 1 week COMPARISON: Comparison is made with the previous ultrasound and MRCP images of the abdomen dated 08/12/2018 TECHNIQUE: Contrast dose: 90 mL of Omnipaque 300 intravenously. Axial and reformatted coronal and sagittal CT images of the abdomen and pelvis were obtained after IV contrast administration. Radiation dose: Total exam DLP = 441.62 mGy-cm. This CT exam was performed using one or more of the following dose reduction techniques: Automated exposure control, adjustment of the mA and/or kV according to patient size, and/or use of iterative reconstruction technique. FINDINGS: LOWER THORAX: Unremarkable. LIVER: There is hypodensity noted at or adjacent to the gallbladder fossa measures 2.5 x 2.4 centimeter may represent fluid collection or abscess formation. Otherwise the liver is grossly unremarkable GALLBLADDER AND BILE DUCTS: . status post cholecystectomy. PANCREAS: Unremarkable. No gross lesion or ductal dilatation. SPLEEN: Unremarkable. ADRENALS: Unremarkable. No mass. KIDNEYS AND URETERS: Unremarkable. No hydronephrosis. No solid mass. VASCULATURE: Unremarkable. No aortic aneurysm. No aortic atherosclerotic calcification or mural plaque present. BOWEL: Unremarkable. No obstruction. No gross mural thickening. APPENDIX: Normal appendix. PERITONEUM: Unremarkable. No free fluid. No free air. LYMPH NODES: Unremarkable. No enlarged lymph nodes. BLADDER: Mild urinary bladder wall thickening. REPRODUCTIVE: Unremarkable. BONES: No acute fracture. OTHER FINDINGS: None. IMPRESSION: Suspicious for fluid collection at or adjacent to the gallbladder fossa measures 2.5 x 2.4 centimeter may represent postsurgical seroma versus abscess formation. Continuous follow-up reassessment by ultrasound or MRI is suggested.. 20:08 Patient was evaluated by surgery and deemed stable for discharge with follow up with surgeon and antibiotics. Patient tolerated PO well in ER. Discussed find ings with patient and plan of care. 21:40 US abdomen Findings Liver Measures 13.9 cm in length. Normal echogenicity of the liver parenchyma. No mass. No intrahepatic bile duct dilatation. Gallbladder The patient is status post cholecystectomy. Fluid collection in the gallbladder fossa measures 2.3 x 1.3 x 1.6 cm. Common bile duct Measures 5 mm. No stones. No dilatation. Pancreas Unremarkable as visualized. No mass. No ductal dilatation. Right kidney Measures 10.7 x 3.7 x 4.7 cm in length. Normal echogenicity. No calculus, mass, or hydronephrosis. Aorta No aneurysmal dilatation. IVC Unremarkable. Other Findings None. Impression 1. The patient is status post cholecystectomy. 2. Fluid collection in the gallbladder fossa measures 2.3 x 1.3 x 1.6 cm, which could represent biloma vs abscecss, Consider follow up with CT with IV/oral contrast. Scribe Attestation: Documented by James Martinez acting as a scribe for Diamond Ovalles MD. Provider Scribe Attestation: All medical record entries made by the Scribe were at my direction and persona lly dictated by me. I have reviewed the chart and agree that the record accurately reflects my personal performance of the history, physical exam, medical decision making, and the department course for this patient. I have also personally directed, reviewed, and agree with the discharge instructions and disposition. Disposition - Clinical Impression Clinical Impression: Abdominal pain - Disposition Disposition: Routine/Home Disposition Time: 21:00 Condition: STABLE Additional Instructions: VISITA WYATT CIRUGANO MIERCOLES POR WYATT JESUS KAREN MEDICAMENTOS A RECETO Prescriptions: Ciprofloxacin [Cipro] 1 tab PO BID #20 tab metroNIDAZOLE [Flagyl] 500 mg PO TID #30 tab Instructions: Postoperative Pain (DC) Print Language: PERSIAN
[2018-09-20 16:47] LABS: BASO % 0.4 % (0.0-2.0); EOS % 0.3 % (0.0-4.0); HEMOGLOBIN 12.3 g/dL (12.0-16.0); LYMPH # 0.7 K/uL (1.0-4.3); MEAN CELL VOLUME 84.3 fl (81.0-99.0); MEAN CORPUSCULAR HEMOGLOBIN 27.7 pg (27.0-31.0); MEAN CORPUSCULAR HGB CONC 32.9 g/dL (33.0-37.0); MEAN PLATELET VOLUME 7.5 fl (7.2-11.7); MONO # 0.4 K/uL (0.0-0.8); MONO % 6.6 % (0.0-10.0); NEUT # 5.6 K/uL (1.8-7.0); NEUT % 82.7 % (50.0-75.0); RBC 4.43 Mil/uL (3.80-5.20); RED CELL DISTRIBUTION WIDTH 14.1 % (11.5-14.5); WHITE BLOOD COUNT 6.8 K/uL (4.8-10.8)
[2018-09-20 16:54] LABS: ALB/GLOB RATIO 1.1 (1.0-2.1); ALBUMIN 4.2 g/dL (3.5-5.0); ALT/SGPT 75 U/L (9-52); AST/SGOT 94 U/L (14-36); BLOOD UREA NITROGEN 14 mg/dl (7-17); CALCIUM 9.3 mg/dL (8.4-10.2); GFR NON-AFRICAN AMERICAN > 60; LIPASE 70 U/L (23-300)
--- NOTE | 2018-09-20 17:03 | RAD ---
Date of service: 09/20/2018 HISTORY: fever post op cholecystectomy 1 week COMPARISON: No prior. TECHNIQUE: Chest PA and lateral FINDINGS: LUNGS: No active pulmonary disease. PLEURA: No significant pleural effusion identified. No pneumothorax apparent. CARDIOVASCULAR: No aortic atherosclerotic calcification present. Normal cardiac size. No pulmonary vascular congestion. OSSEOUS STRUCTURES: No significant abnormalities. VISUALIZED UPPER ABDOMEN: Normal. OTHER FINDINGS: None. IMPRESSION: No acute cardiopulmonary disease appreciated.
[2018-09-20] MEDS ORDERED: Sodium Chloride 0.9% 50 ML IV ONE (17:09)
[2018-09-20] MEDS ORDERED: Iohexol 300 100 ML IJ ONE (17:09)
--- NOTE | 2018-09-20 18:35 | CT ---
Date of service: 09/20/2018 PROCEDURE: CT Abdomen and Pelvis with contrast HISTORY: fever post op cholecystectomy 1 week COMPARISON: Comparison is made with the previous ultrasound and MRCP images of the abdomen dated 08/12/2018 TECHNIQUE: Contrast dose: 90 mL of Omnipaque 300 intravenously. Axial and reformatted coronal and sagittal CT images of the abdomen and pelvis were obtained after IV contrast administration. Radiation dose: Total exam DLP = 441.62 mGy-cm. This CT exam was performed using one or more of the following dose reduction techniques: Automated exposure control, adjustment of the mA and/or kV according to patient size, and/or use of iterative reconstruction technique. FINDINGS: LOWER THORAX: Unremarkable. LIVER: There is hypodensity noted at or adjacent to the gallbladder fossa measures 2.5 x 2.4 centimeter may represent fluid collection or abscess formation. Otherwise the liver is grossly unremarkable GALLBLADDER AND BILE DUCTS: . status post cholecystectomy. PANCREAS: Unremarkable. No gross lesion or ductal dilatation. SPLEEN: Unremarkable. ADRENALS: Unremarkable. No mass. KIDNEYS AND URETERS: Unremarkable. No hydronephrosis. No solid mass. VASCULATURE: Unremarkable. No aortic aneurysm. No aortic atherosclerotic calcification or mural plaque present. BOWEL: Unremarkable. No obstruction. No gross mural thickening. APPENDIX: Normal appendix. PERITONEUM: Unremarkable. No free fluid. No free air. LYMPH NODES: Unremarkable. No enlarged lymph nodes. BLADDER: Mild urinary bladder wall thickening. REPRODUCTIVE: Unremarkable. BONES: No acute fracture. OTHER FINDINGS: None. IMPRESSION: Suspicious for fluid collection at or adjacent to the gallbladder fossa measures 2.5 x 2.4 centimeter may represent postsurgical seroma versus abscess formation. Continuous follow-up reassessment by ultrasound or MRI is suggested..
[2018-09-20 21:52] VITALS: BP 118/68; TEMP 98
[2018-09-20 21:56] VITALS: PULSE 76
--- NOTE | 2018-09-21 11:12 | US ---
Date of service: 09/20/2018 HISTORY: Bile leak, abscess COMPARISON: CT abdomen and pelvis performed earlier the same day TECHNIQUE: Sonographic evaluation of the right upper quadrant of the abdomen. FINDINGS: LIVER: Measures 13.9 cm in length. Normal echogenicity of the liver parenchyma. No mass. No intrahepatic bile duct dilatation. GALLBLADDER: The gallbladder is surgically absent. There is a 2.3 x 1.3 x 1.6 cm hypoechoic fluid collection in the gallbladder fossa. No evidence of increased vascularity. COMMON BILE DUCT: Measures 5.0 mm. No stones. No dilatation. PANCREAS: Unremarkable as visualized. No mass. No ductal dilatation. RIGHT KIDNEY: Measures 10.7 cm in length. Normal echogenicity. No calculus, mass, or hydronephrosis. AORTA: No aneurysmal dilatation. IVC: Unremarkable. OTHER FINDINGS: None . IMPRESSION: Status post cholecystectomy, 2.3 x 1.3 x 1.6 cm fluid collection in the gallbladder fossa without significant increased vascularity is nonspecific and could represent postoperative fluid collection, abscess or bilioma. The sterility of this collection cannot be determined on imaging. Clinical follow-up is advised.
[2018-09-21 15:45] VITALS: O2SAT 99
== END 2018-09-20 21:52 | disposition home or self-care (01) ==
LOC: H.ER 14:59
DX: R10.9 Unspecified abdominal pain (principal); Z90.49 Acquired absence of other specified parts of digestive tract; R50.82 Postprocedural fever
CPT/HCPCS: 71046; 74177; 76705; 80053; 81025; 83605; 83690; 85025; 87040; 87086; 96360; 99283; J7030; Q9967